=== PATIENT | male | born 1995 | race African-American/Black ===

== ENCOUNTER 2019-03-06 12:27 | Emergency (ER) | payer OTHER ==
[2019-03-06] MEDS ORDERED: methylPREDNISolone Sodium Succinate 125 MG/2 ML SDV IM ONE (12:53)
--- NOTE | 2019-03-06 12:56 | EDM.PDOC ---
ED HPI GENERAL MEDICAL PROBLEM - General Chief Complaint: Respiratory Problem Stated Complaint: ASTHMA ATTACK Time Seen by Provider: 03/06/19 12:53 Source of Information: Reports: Patient History Limitations: Reports: No Limitations - History of Present Illness INITIAL COMMENTS - FREE TEXT/NARRATIVE: HISTORY AND PHYSICAL: History of present illness: Patient is a 23-year-old male presents to the ED with complaint of asthma attack. Patient reports history of asthma, he states he has not used inhalers in 2 hours but recently moved to [place] and in the last month has been having cough and shortness of breath. He states this morning he could not catch his breath so he came to the ED. He states he felt feverish last night and having generalized body aches today. Review of systems: As per history of present illness and below otherwise all systems reviewed and negative. Past medical history: As per history of present illness and as reviewed below otherwise noncontributory. Surgical history: As per history of present illness and as reviewed below otherwise noncontributory. Social history: No reported history of drug or alcohol abuse. Family history: As per history of present illness and as reviewed below otherwise noncontributory. Physical exam: General: Patient sitting comfortably in no acute distress and nontoxic appearing HEENT: Atraumatic, normocephalic, pupils reactive, negative for conjunctival pallor or scleral icterus, mucous membranes moist, throat clear, neck supple, nontender, trachea midline. No meningeal signs. Lungs: Wheezing throughout all lung stewart, chest nontender. Heart: S1S2, regular, negative for clicks, rubs, or overt murmur. Abdomen: Soft, nondistended, nontender. Negative for masses or hepatosplenomegaly. Negative for costovertebral tenderness. No rigidity, rebound , guarding. Pelvis: Stable nontender. Genitourinary: Deferred. Rectal: Deferred. Extremities: Atraumatic, negative for cords or calf pain. Neurovascular unremarkable. Neuro: Awake, alert, oriented. Cranial nerves II through XII unremarkable. Cerebellum unremarkable. Motor and sensory unremarkable throughout. Exam nonfocal. Notes: Diagnostics: Influenza Therapeutics: DuoNeb Solumedrol 125mg IM Prescriptions: Ventolin inhaler Medrol dosepak Impression: Acute asthma exacerbation Definitive disposition and diagnosis as appropriate pending reevaluation and review of above. - Related Data Allergies Allergy/AdvReac Type Severity Reaction Status Date / Time Penicillins Allergy Rash Verified 03/06/19 12:37 Sulfa (Sulfonamide Allergy Rash Verified 03/06/19 12:37 Antibiotics) Home Meds: Home Meds Albuterol Sulfate [Proair Hfa] 8.5 gm INH ASDIRECTED 03/06/19 [History] Albuterol [Ventolin HFA] 1 puff INH Q4H #1 inhaler 03/06/19 [Rx] methylPREDNISolone [Medrol] 4 mg PO ASDIRECTED #1 tab.ds.pk 03/06/19 [Rx] Past Medical History Respiratory History: Reports: Asthma Psychiatric History: Reports: Anxiety - Infectious Disease History Infectious Disease History: Reports: None Social & Family History - Family History Family Medical History: Noncontributory - Tobacco Use Smoking Status *Q: Never Smoker Second Hand Smoke Exposure: No - Caffeine Use Caffeine Use: Reports: Tea - Recreational Drug Use Recreational Drug Use: Yes Drug Use in Last 12 Months: Yes Recreational Drug Type: Reports: Marijuana/Hashish ED ROS GENERAL - Review of Systems Review Of Systems: Comprehensive ROS is negative, except as noted in HPI. ED EXAM, GENERAL - Physical Exam Exam: See Below (see dictation) Course - Vital Signs Last Recorded V/S: Last Vital Signs Temp 99.0 F 03/06/19 12:38 Pulse 76 03/06/19 12:59 Resp 20 03/06/19 12:59 BP 169/77 H 03/06/19 12:38 Pulse Ox 93 L 03/06/19 12:59 - Orders/Labs/Meds Meds: Medications Discontinued Medications Generic Name Dose Route Start Last Admin Trade Name Marcelo PRN Reason Stop Dose Admin Methylprednisolone Sodium Succinate 125 mg 03/06/19 12:53 03/06/19 13:07 Solu-Medrol IM 03/06/19 12:54 125 mg ONETIME ONE Administration Departure - Departure Time of Disposition: 13:37 Disposition: Home, Self-Care 01 Condition: Good Clinical Impression: Asthma exacerbation - Discharge Information Prescriptions: Albuterol [Ventolin HFA] 1 puff INH Q4H #1 inhaler methylPREDNISolone [Medrol] 4 mg PO ASDIRECTED #1 tab.ds.pk Instructions: Shortness of Breath, Adult, [id number] Referrals: PCP,Unknown [Primary Care Provider] - Forms: ED Department Discharge Additional Instructions: The following information is given to patients seen in the emergency department who are being discharged to home. This information is to outline your options for follow-up care. We provide all patients seen in our emergency department with a follow-up referral. The need for follow-up, as well as the timing and circumstances, are variable depending upon the specifics of your emergency department visit. If you don't have a primary care physician on staff, we will provide you with a referral. We always advise you to contact your personal physician following an emergency department visit to inform them of the circumstance of the visit and for follow-up with them and/or the need for any referrals to a consulting specialist. The emergency department will also refer you to a specialist when appropriate. This referral assures that you have the opportunity for follow-up care with a specialist. All of these measure are taken in an effort to provide you with optimal care, which includes your follow-up. Under all circumstances we always encourage you to contact your private physician who remains a resource for coordinating your care. When calling for follow-up care, please make the office aware that this follow-up is from your recent emergency room visit. If for any reason you are refused follow-up, please contact the [facility] Emergency Department at and asked to speak to the emergency department charge nurse. [facility] Primary Care [address] [place] [address] [place] [address] Use nebulizer and medrol dosepak as instructed Follow up with primary care provider Return to ED as needed as discussed Sepsis Event Note - Evaluation Sepsis Screening Result: No Definite Risk - Focused Exam Vital Signs: Vital Signs Temp Pulse Resp BP Pulse Ox 03/06/19 12:59 76 20 93 L 03/06/19 12:38 99.0 F 84 22 H 169/77 H 98 Date Exam was Performed: 03/06/19 Time Exam was Performed: 13:51
== END 2019-03-06 13:50 | disposition home or self-care (01) ==
LOC: MW.ED 12:27
DX: J45.901 Unspecified asthma with (acute) exacerbation (principal); Z88.0 Allergy status to penicillin; Z88.2 Allergy status to sulfonamides
CPT/HCPCS: 87804; 96372; 99284; J2930; 99283

== ENCOUNTER 2019-03-26 23:19 | Emergency (ER) | payer OTHER ==
--- NOTE | 2019-03-26 23:40 | EDM.PDOC ---
ED HPI GENERAL MEDICAL PROBLEM - General Chief Complaint: Medication Administration Stated Complaint: MEDICATION REFILL Time Seen by Provider: 03/26/19 23:22 Source of Information: Reports: Patient History Limitations: Reports: No Limitations - History of Present Illness INITIAL COMMENTS - FREE TEXT/NARRATIVE: HISTORY OF PRESENT ILLNESS: Patient is a 23 old male with history of asthma who presents the ER requesting refill of her his albuterol inhaler. States he feels asthma attack coming on and only needs a refill. Patient refusing any treatment here in the ED. Denies any fevers chills or chest pain. States he has very mild shortness of breath typical of his usual mild asthma exacerbation. No abdominal pain, rash or neck stiffness. Has otherwise been in normal state of health. REVIEW OF SYSTEMS: Other than the symptoms associated with the present events, the following is reported with regard to recent health: General: (-) fever. HENT: (-) congestion. Respiratory: (+) mild dyspnea. Cardiovascular: (-) chest pain. GI: (-) abdominal pain. : (-) urinary complaints. Musculoskeletal: (-) other aches or pains. Endocrine: (-) generalized weakness. Neurological: (-) localized weakness. Skin: (-) rash PAST MEDICAL HISTORY: reviewed as per nursing notes SOCIAL HISTORY: reviewed as per nursing notes, MEDICATIONS: Per nurse's note ALLERGIES: Per nurse's note, reviewed by me PHYSICAL EXAMINATION: GENERALIZED APPEARANCE: well developed, well nourished in no distress VITAL SIGNS: Per nurse's note, reviewed by me SKIN: Warm, dry; (-) cyanosis; (-) rash. HEAD: (-) scalp swelling, (-) tenderness. EYES: (-) conjunctival pallor, (-) scleral icterus. ENMT: (-) stridor; mucous membranes moist. NECK: (-) tenderness, (-) stiffness, CHEST AND RESPIRATORY: (-) rales, (-) rhonchi, (-) wheezes; breath sounds equal bilaterally. HEART AND CARDIOVASCULAR: (-) irregularity; (-) murmur, (-) gallop. ABDOMEN AND GI: Soft; (-) tenderness, (-) guarding, (-) rebound, (-) palpable masses, EXTREMITIES: (-) deformity, (-) edema. NEURO AND PSYCH: Alert. Cranial nerves grossly intact; strength symmetric. gait steady EMERGENCY DEPARTMENT COURSE AND TREATMENT: Patient's condition remained stable during Emergency Department evaluation. On exam there was a normal respiratory pattern and lung stewart were clear on auscultation. The patient appeared to be in no distress, appeared well-hydrated and was ambulating in the ED without difficulty. Discharge precautions were given with instructions to return if difficulty breathing, not tolerating oral food or fluids, any respiratory distress, or new symptoms. I encouraged follow-up with the primary care physician or return here for repeat exam in 24-48 hours PLAN AND FOLLOW-UP: Patient received written and verbal instructions regarding this condition. Return to ED immediately with any new or worsening symptoms. Follow up to be arranged by patient with pcp in 1-2 days for further evaluation. Given discharge precautions. Patient expressed verbal understanding. - Related Data Allergies Allergy/AdvReac Type Severity Reaction Status Date / Time Penicillins Allergy Rash Verified 03/26/19 23:32 Sulfa (Sulfonamide Allergy Rash Verified 03/26/19 23:32 Antibiotics) Home Meds: Home Meds Albuterol Sulfate [Proair Hfa] 8.5 gm INH ASDIRECTED 03/06/19 [History] Past Medical History HEENT History: Reports: None Cardiovascular History: Reports: None Respiratory History: Reports: Asthma Gastrointestinal History: Reports: None Genitourinary History: Reports: None Musculoskeletal History: Reports: None Neurological History: Reports: None Psychiatric History: Reports: Anxiety, Suicide Attempt, Suicidal Ideation Endocrine/Metabolic History: Reports: None Hematologic History: Reports: None Immunologic History: Reports: None Oncologic (Cancer) History: Reports: None Dermatologic History: Reports: None - Infectious Disease History Infectious Disease History: Reports: None - Past Surgical History Head Surgeries/Procedures: Reports: None Social & Family History - Family History Family Medical History: Noncontributory - Tobacco Use Smoking Status *Q: Former Smoker Used Tobacco, but Quit: Yes Month/Year Tobacco Last Used: 2019 - Caffeine Use Caffeine Use: Reports: Tea - Recreational Drug Use Recreational Drug Use: Yes Drug Use in Last 12 Months: Yes Recreational Drug Type: Reports: Marijuana/Hashish Recreational Drug Use Frequency: Not Used In Over 1 Month ED ROS GENERAL - Review of Systems Review Of Systems: See Below (see dictation) ED EXAM, GENERAL - Physical Exam Exam: See Below (see dictation) Course - Vital Signs Last Recorded V/S: Last Vital Signs Temp 97.4 F 03/26/19 23:28 Pulse 72 03/26/19 23:28 Resp 18 03/26/19 23:28 BP 117/75 03/26/19 23:28 Pulse Ox 96 03/26/19 23:28 Departure - Departure Time of Disposition: 23:39 Disposition: Home, Self-Care 01 Condition: Good Clinical Impression: Asthma - Discharge Information *PRESCRIPTION DRUG MONITORING PROGRAM REVIEWED*: Not Applicable *COPY OF PRESCRIPTION DRUG MONITORING REPORT IN PATIENT [place]: Not Applicable Instructions: Asthma, Adult Referrals: Rohini Alonzo NP [Primary Care Provider] - 2 Days Forms: ED Department Discharge Additional Instructions: The following information is given to patients seen in the emergency department who are being discharged to home. This information is to outline your options for follow-up care. We provide all patients seen in our emergency department with a follow-up referral. The need for follow-up, as well as the timing and circumstances, are variable depending upon the specifics of your emergency department visit. If you don't have a primary care physician on staff, we will provide you with a referral. We always advise you to contact your personal physician following an emergency department visit to inform them of the circumstance of the visit and for follow-up with them and/or the need for any referrals to a consulting specialist. The emergency department will also refer you to a specialist when appropriate. This referral assures that you have the opportunity for follow-up care with a specialist. All of these measure are taken in an effort to provide you with optimal care, which includes your follow-up. Under all circumstances we always encourage you to contact your private physician who remains a resource for coordinating your care. When calling for follow-up care, please make the office aware that this follow-up is from your recent emergency room visit. If for any reason you are refused follow-up, please contact the [facility] Emergency Department at and asked to speak to the emergency department charge nurse. Sepsis Event Note - Evaluation Sepsis Screening Result: No Definite Risk - Focused Exam Vital Signs: Vital Signs Temp Pulse Resp BP Pulse Ox 03/26/19 23:28 97.4 F 72 18 117/75 96 Date Exam was Performed: 03/26/19 Time Exam was Performed: 23:41
[2019-03-27] MEDS ORDERED: Albuterol 8 GM Inhaler INH ONE ×2 (00:13)
== END 2019-03-26 23:49 | disposition home or self-care (01) ==
LOC: MW.ED 23:19
DX: J45.909 Unspecified asthma, uncomplicated (principal); Z88.0 Allergy status to penicillin; Z88.2 Allergy status to sulfonamides; Z87.891 Personal history of nicotine dependence
CPT/HCPCS: 99282; A9270

== ENCOUNTER 2019-05-12 13:40 | Emergency (ER) | payer OTHER ==
--- NOTE | 2019-05-12 14:07 | EDM.PDOC ---
ED HPI GENERAL MEDICAL PROBLEM - General Chief Complaint: Fever Stated Complaint: MUCOUS,COUGHING Time Seen by Provider: 05/12/19 14:06 Source of Information: Reports: Patient History Limitations: Reports: No Limitations - History of Present Illness INITIAL COMMENTS - FREE TEXT/NARRATIVE: HISTORY AND PHYSICAL: History of present illness: Patient is a 24-year-old male with history of asthma presents to the ED with complaint of fever and cough since yesterday. He states he has had some shortness of breath and has been using his nebulizer which does help. He reports sore throat, headache, and body aches. He denies chest pain, nausea, vomiting, diarrhea, difficulty breathing or swallowing. He is taking OTC cold medications for his symptoms with little relief. Review of systems: As per history of present illness and below otherwise all systems reviewed and negative. Past medical history: As per history of present illness and as reviewed below otherwise noncontributory. Surgical history: As per history of present illness and as reviewed below otherwise noncontributory. Social history: No reported history of drug or alcohol abuse. Family history: As per history of present illness and as reviewed below otherwise noncontributory. Physical exam: General: Patient sitting comfortably in no acute distress and nontoxic appearing HEENT: TMs are clear bilaterally. Atraumatic, normocephalic, pupils reactive, negative for conjunctival pallor or scleral icterus, mucous membranes moist, throat clear, neck supple, nontender, trachea midline. No meningeal signs. Lungs: Mild apical wheezing, chest nontender. Heart: S1S2, regular, negative for clicks, rubs, or overt murmur. Abdomen: Soft, nondistended, nontender. Negative for masses or hepatosplenomegaly. Negative for costovertebral tenderness. No rigidity, rebound , guarding. Pelvis: Stable nontender. Genitourinary: Deferred. Rectal: Deferred. Extremities: Atraumatic, negative for cords or calf pain. Neurovascular unremarkable. Neuro: Awake, alert, oriented. Cranial nerves II through XII unremarkable. Cerebellum unremarkable. Motor and sensory unremarkable throughout. Exam nonfocal. Notes: Patient slightly tachycardic on arrival, he did do a nebulizer treatment just prior to arrival which can cause an elevation in the HR. During examination , heart rate normalized to under 100 without any intervention. Diagnostics: Influenza Therapeutics: none Prescriptions: none Impression: Viral URI Plan: Alternate Tylenol and ibuprofen as needed for fever Follow-up with primary care provider Return To ED as needed discussed Definitive disposition and diagnosis as appropriate pending reevaluation and review of above. Sore Throat Pain Score (Numeric/FACES): 5 - Related Data Allergies Allergy/AdvReac Type Severity Reaction Status Date / Time Penicillins Allergy Rash Verified 05/12/19 14:03 Sulfa (Sulfonamide Allergy Rash Verified 05/12/19 14:03 Antibiotics) Home Meds: Home Meds Albuterol Sulfate [Proair Hfa] 8.5 gm INH ASDIRECTED 03/06/19 [History] Past Medical History HEENT History: Reports: None Cardiovascular History: Reports: None Respiratory History: Reports: Asthma Gastrointestinal History: Reports: None Genitourinary History: Reports: None Musculoskeletal History: Reports: None Neurological History: Reports: None Psychiatric History: Reports: Anxiety, Suicide Attempt, Suicidal Ideation Endocrine/Metabolic History: Reports: None Hematologic History: Reports: None Immunologic History: Reports: None Oncologic (Cancer) History: Reports: None Dermatologic History: Reports: None - Infectious Disease History Infectious Disease History: Reports: None - Past Surgical History Head Surgeries/Procedures: Reports: None Social & Family History - Family History Family Medical History: Noncontributory - Caffeine Use Caffeine Use: Reports: Tea ED ROS ENT - Review of Systems Review Of Systems: Comprehensive ROS is negative, except as noted in HPI. ED EXAM, ENT - Physical Exam Exam: See Below (see dictation) Course - Vital Signs Last Recorded V/S: Last Vital Signs Temp 100.4 F 05/12/19 13:59 Pulse 131 H 05/12/19 13:59 Resp 20 05/12/19 13:59 BP 130/87 05/12/19 13:59 Pulse Ox 95 05/12/19 13:59 Departure - Departure Time of Disposition: 14:43 Disposition: Home, Self-Care 01 Condition: Good Clinical Impression: Viral URI - Discharge Information Referrals: PCP,None [Primary Care Provider] - Forms: ED Department Discharge Care Plan Goals: The following information is given to patients seen in the emergency department who are being discharged to home. This information is to outline your options for follow-up care. We provide all patients seen in our emergency department with a follow-up referral. The need for follow-up, as well as the timing and circumstances, are variable depending upon the specifics of your emergency department visit. If you don't have a primary care physician on staff, we will provide you with a referral. We always advise you to contact your personal physician following an emergency department visit to inform them of the circumstance of the visit and for follow-up with them and/or the need for any referrals to a consulting specialist. The emergency department will also refer you to a specialist when appropriate. This referral assures that you have the opportunity for follow-up care with a specialist. All of these measure are taken in an effort to provide you with optimal care, which includes your follow-up. Under all circumstances we always encourage you to contact your private physician who remains a resource for coordinating your care. When calling for follow-up care, please make the office aware that this follow-up is from your recent emergency room visit. If for any reason you are refused follow-up, please contact the [facility] Emergency Department at and asked to speak to the emergency department charge nurse. [facility] Primary Care [address] [place] [address] [id number] [address] [address] Alternate Tylenol and ibuprofen as needed for fever Follow-up with primary care provider Return To ED as needed discussed Sepsis Event Note - Evaluation Sepsis Screening Result: No Definite Risk - Focused Exam Vital Signs: Vital Signs Temp Pulse Resp BP Pulse Ox 05/12/19 13:59 100.4 F 131 H 20 130/87 95 Date Exam was Performed: 05/12/19 Time Exam was Performed: 14:43
== END 2019-05-12 15:13 | disposition home or self-care (01) ==
LOC: MW.ED 13:40
DX: J06.9 Acute upper respiratory infection, unspecified (principal); J45.909 Unspecified asthma, uncomplicated; Z88.0 Allergy status to penicillin; Z88.2 Allergy status to sulfonamides
CPT/HCPCS: 87804; 99282; 99284

== ENCOUNTER 2019-05-29 06:50 | Emergency (ER) | payer OTHER ==
[2019-05-29] MEDS ORDERED: Ibuprofen 600 MG Tab PO ONE (07:19)
[2019-05-29] MEDS ORDERED: Lidocaine 1% with EPINEPHrine 1:100,000 10 ML MDV INJECT ONE (07:19)
[2019-05-29] MEDS ORDERED: Lidocaine 1% with EPINEPHrine 1:100,000 20 ML MDV ONE (07:28)
[2019-05-29] MEDS ORDERED: Lidocaine 1% with EPINEPHrine 1:100,000 20 ML MDV INJECT ONE (07:28)
--- NOTE | 2019-05-29 07:53 | EDM.PDOC ---
ED [facility] GENERAL MEDICAL PROBLEM - General Chief Complaint: Respiratory Problem Stated Complaint: POSSIBLE SPIDER BITE Time Seen by Provider: 05/29/19 07:30 Source of Information: Reports: Patient History Limitations: Reports: No Limitations - History of Present Illness INITIAL COMMENTS - FREE TEXT/NARRATIVE: Patient is a 24-year-old male no significant past medical history presenting with a chief complaint of infection to the right lower extremity. Patient states he noticed the infection yesterday around 5 PM. Patient states it started as a small pimple and he attempted to drain the pimple with a sewing needle. He did not get any pus out and noticed that overnight it got more swollen and painful. Location is posterior right thigh. Patient had surrounding redness. Patient denies any other injuries. Patient denies fevers , chills, nausea, vomiting. Pmhx: None Pshx: None Family Hx: noncontributory Smoking history? no Etoh use? none Drug use? none In addition to that documented in the HPI above, the additional ROS was obtained : Constitutional: Denies fevers or chills Eyes: Denies vision changes ENMT: Denies sore throat CV: Denies chest pain Resp: Denies SOB GI: Denies vomiting or diarrhea : Denies painful urination MSK: Denies recent trauma Skin: Per HPI Neuro: Denies new numbness or tingling or weakness Endocrine: Denies unexpected weight loss Heme: Denies bleeding disorders I have reviewed the triage vital signs Const: Well nourished, well developed, appears stated age Eyes: PERRL, no conjunctival injection HENT: NCAT, Neck supple without meningismus CV: RRR, Warm, well-perfused extremities RESP: CTAB, Unlabored respiratory effort GI: soft, non-tender, non-distended, no masses MSK: No gross deformities appreciated Skin: Erythema with central small abscess located on the posterior medial right thigh. No extension into the groin or scrotum. No crepitus noted. Neuro: Alert, stencil sprayer II-XII grossly intact. Sensation and motor function of extremities grossly intact. Psych: Appropriate mood and affect Assessment and plan: Patient is a 24 of male presenting with a abscess and surrounding cellulitis. Patient had I&D performed in the emergency department with drainage of some pus. Patient had sterile dressing placed and initiated on antibiotics. Patient given return precautions all questions dressed and answered. Patient agrees with plan. PROCEDURE NOTE: INCISION AND DRAINAGE OF ABSCESS Indication: Abscess Customer Business Manager: Dr. Schmidt Indications, risks, and benefits explained to patient and verbal informed consent obtained. Correct patient and procedure type was verified. 1) The patient was anesthetized using 4 cc lidocaine 1% w/epinephrine 2) Abscess Location: Right posterior thigh 3) Abscess Size: 2 cm 4) Procedure description: 11 blade scalpel was used to make incision. Small amount pus was drained 5) Culture specimen(s) obtained and sent for testing? No A clean dressing was applied. The patient tolerated the procedure with some discomfort. right leg Pain Score (Numeric/FACES): 8 - Related Data Allergies Allergy/AdvReac Type Severity Reaction Status Date / Time Penicillins Allergy Rash Verified 05/29/19 06:59 Sulfa (Sulfonamide Allergy Rash Verified 05/29/19 06:59 Antibiotics) Home Meds: Home Meds Albuterol Sulfate [Proair Hfa] 8.5 gm INH ASDIRECTED 03/06/19 [History] Ciprofloxacin HCl [Cipro] 500 mg PO BID #14 tablet 05/29/19 [Rx] Clindamycin HCl 300 mg PO Q6HR #40 capsule 05/29/19 [Rx] Past Medical History HEENT History: Reports: None Cardiovascular History: Reports: None Respiratory History: Reports: Asthma Gastrointestinal History: Reports: None Genitourinary History: Reports: None Musculoskeletal History: Reports: None Neurological History: Reports: None Psychiatric History: Reports: Anxiety, Suicide Attempt, Suicidal Ideation Endocrine/Metabolic History: Reports: None Hematologic History: Reports: None Immunologic History: Reports: None Oncologic (Cancer) History: Reports: None Dermatologic History: Reports: None - Infectious Disease History Infectious Disease History: Reports: None - Past Surgical History Head Surgeries/Procedures: Reports: None Social & Family History - Family History Family Medical History: Noncontributory - Tobacco Use Smoking Status *Q: Current Some Day Smoker Years of Tobacco use: 5 Packs/Tins Daily: 0.2 - Caffeine Use Caffeine Use: Reports: Tea - Recreational Drug Use Recreational Drug Use: Yes Recreational Drug Type: Reports: Marijuana/Hashish ED ROS GENERAL - Review of Systems Review Of Systems: See Below ED EXAM, GENERAL - Physical Exam Exam: See Below Course - Vital Signs Last Recorded V/S: Last Vital Signs Temp 36.7 C 05/29/19 06:59 Pulse 90 03/25/20 06:59 Resp 18 05/29/19 06:59 BP 164/60 H 05/29/19 06:59 Pulse Ox 100 05/29/19 06:59 - Orders/Labs/Meds Meds: Medications Discontinued Medications Generic Name Dose Route Start Last Admin Trade Name Marcelo PRN Reason Stop Dose Admin Ibuprofen 600 mg 05/29/19 07:19 05/29/19 07:44 Motrin PO 05/29/19 07:20 600 mg ONETIME ONE Administration Lidocaine/Epinephrine 20 ml 05/29/19 07:28 05/29/19 07:44 Xylocaine 1% With Epinephrine 1:100,000 INJECT 05/29/19 07:29 20 ml ONETIME ONE Administration Lidocaine/Epinephrine Confirm 05/29/19 07:28 05/29/19 07:44 Xylocaine 1% With Epinephrine 1:100,000 Administered 05/29/19 07:29 Not Given Dose 20 ml .ROUTE .STK-MED ONE Departure - Departure Time of Disposition: 07:53 Disposition: Home, Self-Care 01 Clinical Impression: Cellulitis and abscess of right lower extremity - Discharge Information Prescriptions: Clindamycin HCl 300 mg PO Q6HR #40 capsule Ciprofloxacin HCl [Cipro] 500 mg PO BID #14 tablet Instructions: Cellulitis, Adult, [id number] Referrals: PCP,None [Primary Care Provider] - Forms: ED Department Discharge Sepsis Event Note - Evaluation Sepsis Screening Result: No Definite Risk - Focused Exam Vital Signs: Vital Signs Temp Pulse Resp BP Pulse Ox 05/29/19 06:59 36.7 C 90 18 164/60 H 100 Date Exam was Performed: 05/29/19 Time Exam was Performed: 07:54
[2019-05-29] MEDS ORDERED: Ciprofloxacin 500 MG Tab PO ONE (08:20)
[2019-05-29] MEDS ORDERED: Clindamycin HCl 150 MG Cap PO ONE (08:20)
== END 2019-05-29 08:32 | disposition home or self-care (01) ==
LOC: MW.ED 06:50
DX: L03.115 Cellulitis of right lower limb (principal); L02.415 Cutaneous abscess of right lower limb; F17.210 Nicotine dependence, cigarettes, uncomplicated; Z88.0 Allergy status to penicillin; Z88.2 Allergy status to sulfonamides
CPT/HCPCS: 10060; 99283; A9270

== ENCOUNTER 2019-12-08 16:47 | Emergency (ER) | payer OTHER ==
[2019-12-08] MEDS ORDERED: Albuterol/Ipratropium 3.0-0.5 MG/3 ML Neb Soln NEB ONE (16:50)
[2019-12-08] MEDS ORDERED: predniSONE 20 MG Tab PO ONE (16:50)
--- NOTE | 2019-12-08 16:53 | EDM.PDOC ---
ED [facility] GENERAL MEDICAL PROBLEM - General Chief Complaint: Respiratory Problem Stated Complaint: ASTHMA Time Seen by Provider: 12/08/19 16:51 Source of Information: Reports: Patient History Limitations: Reports: No Limitations - History of Present Illness INITIAL COMMENTS - FREE TEXT/NARRATIVE: HISTORY AND PHYSICAL: History of present illness: Patient is a 24-year-old male who presents to the emergency room with complaints of shortness of breath and wheezing. He has a longstanding history of asthma and does use an inhaler on a routine basis. He states he ran out of his inhaler and has increased shortness of breath. Patient denies any fever, chills, headache, change in vision, syncope or near syncope. Denies any chest pain, back pain, or concerns of COVID-19. Denies any GI or symptoms. Patient has been eating and drinking appropriately. Review of systems: As per history of present illness and below otherwise all systems reviewed and negative. Past medical history: As per history of present illness and as reviewed below otherwise noncontributory. Surgical history: As per history of present illness and as reviewed below otherwise noncontributory. Social history: See social history for further information Family history: As per history of present illness and as reviewed below otherwise noncontributory. Physical exam: General: Well developed and well nourished 24-year-old male. Alert and orientated x 3. Nontoxic in appearance and in no acute distress. Vital signs are stable and have been reviewed by me. Nursing notes were reviewed. HEENT: Atraumatic, normocephalic, pupils equal and reactive bilaterally, negative for conjunctival pallor or scleral icterus, mucous membranes moist, TMs normal bilaterally, throat clear, neck supple, nontender, trachea midline. No drooling or trismus noted. No meningeal signs. No hot potato voice noted. Lungs: Expiratory wheezing throughout to auscultation, breath sounds equal bilaterally, chest nontender. Normal work of breathing, no accessory muscles used. Heart: S1S2, regular rate and rhythm without overt murmur Abdomen: Soft, nondistended, nontender. Skin: Intact, warm, dry. No lesions or rashes noted. Hematologic: No petechiae or purpra. Mucosa appropriate color and normal nail bed color and refill. Extremities: Atraumatic, moves all extremities per self without difficulty or deficits, negative for cords or calf pain. Neurovascular unremarkable. Neuro: Awake, alert, oriented. Cranial nerves II through XII unremarkable. Cerebellum unremarkable. Motor and sensory unremarkable throughout. Exam nonfocal. Psychiatric: Mood and affect are appropriate. Normal thought process. Answering questions appropriately. Notes: Lung sounds improved after the nebulizer treatment. X-ray shows no acute findings. I have spoken with the patient/caregiver and discussed today's findings, in addition to providing specific details for plan of care. Reassessment at the time of disposition demonstrates that the patient is in no acute distress. The patient has remained stable throughout the entire ED visit and is without objective evidence for acute process requiring urgent intervention or hospitalization. The patient is stable for discharge, counseling was provided and we discussed in great detail signs and symptoms that would prompt them to return to the Emergency Department. Medication, follow up and supportive care measures were reviewed and discussed. Voices understanding and is agreeable to plan of care. Denies any further questions or concerns at this time. Diagnostics: CXR Therapeutics: Prednisone, Duo Neb Prescription: Albuterol Inhaler, Prednisone Impression: Asthma exacerbation Plan: 1. Take your medications as prescribed. 2. We encourage you to follow up with your primary care provider and/or recommended specialist in the next few days for re-evaluation and further care/management. 3. If your symptoms should worsen, new symptoms develop or any of the signs and symptoms we discussed should arise please return to the emergency room or call 911 (if needed). Definitive disposition and diagnosis as appropriate pending reevaluation and review of above. - Related Data Allergies Allergy/AdvReac Type Severity Reaction Status Date / Time Penicillins Allergy Rash Verified 12/08/19 17:00 Sulfa (Sulfonamide Allergy Rash Verified 12/08/19 17:00 Antibiotics) Home Meds: Home Meds Albuterol Sulfate [Proair Hfa] 2 puff INH Q4HR PRN #1 inhaler 12/08/19 [Rx] predniSONE [Prednisone] 40 mg PO DAILY 4 Days #8 tablet 12/08/19 [Rx] Past Medical History HEENT History: Reports: None Cardiovascular History: Reports: None Respiratory History: Reports: Asthma Gastrointestinal History: Reports: None Genitourinary History: Reports: None Musculoskeletal History: Reports: None Neurological History: Reports: None Psychiatric History: Reports: Anxiety, Suicide Attempt, Suicidal Ideation Endocrine/Metabolic History: Reports: None Hematologic History: Reports: None Immunologic History: Reports: None Oncologic (Cancer) History: Reports: None Dermatologic History: Reports: None - Infectious Disease History Infectious Disease History: Reports: None - Past Surgical History Head Surgeries/Procedures: Reports: None Social & Family History - Family History Family Medical History: Noncontributory - Caffeine Use Caffeine Use: Reports: Tea ED ROS GENERAL - Review of Systems Review Of Systems: Comprehensive ROS is negative, except as noted in HPI. ED EXAM, GENERAL - Physical Exam Exam: See Below (See dictation) Course - Vital Signs Last Recorded V/S: Last Vital Signs Temp 94.4 F L 12/08/19 16:58 Pulse 109 H 12/08/19 16:58 Resp 24 H 12/08/19 16:58 BP 134/83 12/08/19 16:58 Pulse Ox 93 L 12/08/19 16:58 - Orders/Labs/Meds Orders: Active Orders 24 hr Category Date Time Status RT Aerosol Therapy [RC] ASDIRECTED Care 12/08/19 16:50 Active RT Post Treatment Assessment [RC] Click to Edit Care 12/08/19 17:28 Ordered RT Post Treatment Assessment [RC] Click to Edit Care 12/08/19 17:44 Active RT Pre-Treatment Assessment [RC] Click to Edit Care 12/08/19 17:28 Ordered RT Pre-Treatment Assessment [RC] Click to Edit Care 12/08/19 17:44 Active Meds: Medications Discontinued Medications Generic Name Dose Route Start Last Admin Trade Name Marcelo PRN Reason Stop Dose Admin Albuterol 1 gm 12/08/19 17:28 Ventolin Hfa INH 12/08/19 17:29 ONETIME ONE Albuterol 18 gm 12/08/19 17:44 Ventolin Hfa INH 12/08/19 17:45 ONETIME ONE Albuterol Confirm 12/08/19 17:55 Ventolin Hfa Administered 12/08/19 17:56 Dose 18 gm .ROUTE .STK-MED ONE Albuterol/Ipratropium 6 ml 12/08/19 16:50 12/08/19 17:00 Duoneb 3.0-0.5 Mg/3 Ml NEB 12/08/19 16:51 6 ml ONETIME ONE Administration Prednisone 60 mg 12/08/19 16:50 12/08/19 17:06 Prednisone PO 12/08/19 16:51 60 mg ONETIME ONE Administration Departure - Departure Time of Disposition: 17:31 Disposition: Home, Self-Care 01 Clinical Impression: Asthma exacerbation - Discharge Information Prescriptions: predniSONE [Prednisone] 40 mg PO DAILY 4 Days #8 tablet Albuterol Sulfate [Proair Hfa] 2 puff INH Q4HR PRN #1 inhaler PRN Reason: Dyspnea Instructions: Asthma, Adult, [id number] Referrals: Maria R JOY [Ordering Only Provider] - Forms: ED Department Discharge Additional Instructions: The following information is given to patients seen in the emergency department who are being discharged to home. This information is to outline your options for follow-up care. We provide all patients seen in our emergency department with a follow-up referral. The need for follow-up, as well as the timing and circumstances, are variable depending upon the specifics of your emergency department visit. If you don't have a primary care physician on staff, we will provide you with a referral. We always advise you to contact your personal physician following an emergency department visit to inform them of the circumstance of the visit and for follow-up with them and/or the need for any referrals to a consulting specialist. The emergency department will also refer you to a specialist when appropriate. This referral assures that you have the opportunity for follow-up care with a specialist. All of these measure are taken in an effort to provide you with optimal care, which includes your follow-up. Under all circumstances we always encourage you to contact your private physician who remains a resource for coordinating your care. When calling for follow-up care, please make the office aware that this follow-up is from your recent emergency room visit. If for any reason you are refused follow-up, please contact the [facility] Emergency Department at and asked to speak to the emergency department charge nurse. [facility] [address] [place] [id number] [id number] Thank you for choosing the [facility] emergency department in [place] for your medical needs today. It was a pleasure caring for you. Today you were seen in the emergency department for asthma. 1. Take your medications as prescribed. 2. We encourage you to follow up with your primary care provider and/or recommended specialist in the next few days for re-evaluation and further care/management. 3. If your symptoms should worsen, new symptoms develop or any of the signs and symptoms we discussed should arise please return to the emergency room or call 911 (if needed). Sepsis Event Note (ED) - Focused Exam Vital Signs: Vital Signs Temp Pulse Resp BP Pulse Ox 12/08/19 16:58 94.4 F L 109 H 24 H 134/83 93 L - My Orders Last 24 Hours: My Active Orders 12/08/19 16:50 RT Aerosol Therapy [RC] ASDIRECTED 12/08/19 17:28 RT Post Treatment Assessment [RC] Click to Edit RT Pre-Treatment Assessment [RC] Click to Edit 12/08/19 17:44 RT Post Treatment Assessment [RC] Click to Edit RT Pre-Treatment Assessment [RC] Click to Edit - Assessment/Plan Last 24 Hours: My Active Orders 12/08/19 16:50 RT Aerosol Therapy [RC] ASDIRECTED 12/08/19 17:28 RT Post Treatment Assessment [RC] Click to Edit RT Pre-Treatment Assessment [RC] Click to Edit 12/08/19 17:44 RT Post Treatment Assessment [RC] Click to Edit RT Pre-Treatment Assessment [RC] Click to Edit
[2019-12-08] MEDS ORDERED: Albuterol 8 GM Inhaler INH ONE ×2 (17:28→17:44)
[2019-12-08] MEDS ORDERED: Albuterol HFA 18 Gm Inhaler ONE (17:55)
--- NOTE | 2019-12-08 18:12 | CR ---
INDICATION: Pain with shortness of breath. TECHNIQUE: Chest 1 view. COMPARISON: None FINDINGS: Cardiovascular and mediastinum: Heart size and vasculature are normal in caliber and appearance. Mediastinum is within normal limits. Lungs and pleural space: Lungs are clear. No sign of infiltrate or mass. No sign of pleural effusion. No pneumothorax. Bones and soft tissues: No significant findings. IMPRESSION: Unremarkable chest. Dictated by Kamari Wilson MD @ Dec 08 2019 6:10PM Signed by Dr. Kamari Wilson @ Dec 08 2019 6:10PM
== END 2019-12-08 18:24 | disposition home or self-care (01) ==
LOC: MW.ED 16:47
DX: J45.901 Unspecified asthma with (acute) exacerbation (principal); Z88.0 Allergy status to penicillin; Z88.2 Allergy status to sulfonamides
CPT/HCPCS: 71045; 94640; 99285; A9270; 99283; J3535-GY; J7620-GY

== ENCOUNTER 2019-12-15 16:54 | Emergency (ER) | payer OTHER ==
[2019-12-15] MEDS ORDERED: Alum Hydrox/Mag Hydrox/Simeth 15 ML, Lidocaine 2% 5 ML PO ONE ×2 (17:38)
[2019-12-15] MEDS ORDERED: Albuterol/Ipratropium 3.0-0.5 MG/3 ML Neb Soln NEB ONE (17:38)
[2019-12-15] MEDS ORDERED: Acetaminophen 500 MG Tab PO ONE (17:38)
--- NOTE | 2019-12-15 19:06 | EDM.PDOC ---
ED HPI GENERAL MEDICAL PROBLEM - General Chief Complaint: Asthma Stated Complaint: HARD TIME BREATHING, ASTHMA Time Seen by Provider: 12/15/19 17:05 Source of Information: Reports: Patient History Limitations: Reports: No Limitations - History of Present Illness INITIAL COMMENTS - FREE TEXT/NARRATIVE: 24/M w/PMH asthma presenting with abdominal pain, N/V, cough, wheezing. Reports multiple episodes of NB emesis since this AM. Emesis results in coughing at the end of the emesis episode. Has also noticed some wheezing throughout the day and feels mildly dyspneic. 09/12 epigastric pain, non-radiating, constant, nothing makes it better/worse. No sick contacts at home. Denies fever, chills, hematemesis, CP, SOB, rectal bleeding, abdominal distention. Past medical history: Reviewed, no additional pertinent history. Surgical history: Reviewed in system, no additional pertinent history. Social history: Reviewed in system, no additional pertinent history. Family history: Reviewed in system, no additional pertinent history. PHYSICAL EXAM Vital signs reviewed. Nursing notes reviewed. Constitutional: Awake, alert, non-distressed. Head: Normocephalic, atraumatic. Eyes: EOMI, conjunctiva normal, no discharge, no scleral icterus. Ears, Nose, Throat: External ears and nose normal, moist oral mucosa. Cardiovascular: 2+ radial pulse, capillary refill less than 2 seconds. Pulmonary: normal work of breathing, no accessory muscle use. Mild expiratory wheezing. Abdomen/GI: Soft, mild epigastric tenderness, nondistended, no guarding or rigidity, no masses. Musculoskeletal: No deformities. Integumentary: Appropriate color for ethnicity, warm, dry, no pallor or jaundice, no rash. Neurologic: Alert, answering questions appropriately, normal speech, no facial droop, moving all extremities well. Psychiatric: Appropriate mood and affect, normal thought process. Abdominal Pain Score (Numeric/FACES): 4 - Related Data Allergies Allergy/AdvReac Type Severity Reaction Status Date / Time Penicillins Allergy Rash Verified 12/15/19 17:09 Sulfa (Sulfonamide Allergy Rash Verified 12/15/19 17:09 Antibiotics) Home Meds: Home Meds Albuterol Sulfate [Proair Hfa] 2 puff INH Q4HR PRN #1 inhaler 12/08/19 [Rx] Past Medical History HEENT History: Reports: None Cardiovascular History: Reports: None Respiratory History: Reports: Asthma Gastrointestinal History: Reports: None Genitourinary History: Reports: None Musculoskeletal History: Reports: None Neurological History: Reports: None Psychiatric History: Reports: Anxiety, Suicide Attempt, Suicidal Ideation Endocrine/Metabolic History: Reports: None Hematologic History: Reports: None Immunologic History: Reports: None Oncologic (Cancer) History: Reports: None Dermatologic History: Reports: None - Infectious Disease History Infectious Disease History: Reports: None - Past Surgical History Head Surgeries/Procedures: Reports: None Social & Family History - Family History Family Medical History: Noncontributory - Tobacco Use Smoking Status *Q: Never Smoker - Caffeine Use Caffeine Use: Reports: Tea - Recreational Drug Use Recreational Drug Use: No ED ROS GENERAL - Review of Systems Review Of Systems: See Below ED EXAM, GENERAL - Physical Exam Exam: See Below Course - Vital Signs Text/Narrative:: Mildly wheezing on arrival. Speaking in full sentences, breathing easily. Normal SPO2 readings, normal respiratory rate. Given 2x DuoNebs, wheezing resolved. Breathing much better, back to normal. No fever or persistent cough. No CP. Low suspicion for pneumonia. No leg swelling, pleuritic chest pain, hemoptysis, hypoxia to suggest PE. Do not think a CXR needed at this point given rapid improvement after DuoNebs. No chest discomfort and dyspnea resolved with nebs so low suspicion for ACS/cardiac ischemia. Likely mild asthma exacerbation. Discussed with patient and would not recommend oral corticosteroids at this point given mild and rapidly resolved symptoms and novel coronavirus pandemic, patient is agreeable. Mild epigastric tenderness after multiple episodes of emesis. Not vomiting here at all. Did not require antiemetics. Complains of epigastric burning, this almost totally resolved after GI cocktail. Suspect mild gastritis. No hematemesis, coffee ground emesis, rectal bleeding, no abdominal guarding. Tachycardia improved on its own without fluids. Low suspicion for pancreatitis, PUD, hepatitis, biliary pathology, etc given minimally tender abdomen, no fever, no GIB, stable VS. Did discuss further work-up with pt including labs +/- imaging vs DC home with medication management for GERD/reflux - he prefers to DC home without additional work-up. Rx for Zofran sent. Has albuterol at home. Recommended OTC Prilosec and Maalox Max. Discussed return precautions and need for primary care follow-up. No quest ions at this point, discharged in good condition. Last Recorded V/S: Last Vital Signs Temp 37.0 C 12/15/19 19:28 Pulse 87 12/15/19 19:28 Resp 15 12/15/19 18:38 BP 134/76 12/15/19 19:28 Pulse Ox 95 12/15/19 19:28 - Orders/Labs/Meds Meds: Medications Discontinued Medications Generic Name Dose Route Start Last Admin Trade Name Ezequielq PRN Reason Stop Dose Admin Acetaminophen 1,000 mg 12/15/19 17:38 12/15/19 17:57 Tylenol Extra Strength PO 12/15/19 17:39 1,000 mg ONETIME ONE Administration Albuterol/Ipratropium 6 ml 12/15/19 17:38 12/15/19 17:46 Duoneb 3.0-0.5 Mg/3 Ml NEB 12/15/19 17:39 6 ml ONETIME ONE Administration Al Hydroxide/Mg Hydroxide 15 0 ml 12/15/19 17:38 12/15/19 17:55 ml/ Lidocaine HCl 5 ml PO 12/15/19 17:39 1 each ONETIME ONE Administration Departure - Departure Time of Disposition: 19:01 Disposition: Home, Self-Care 01 Condition: Good Clinical Impression: Mild asthma exacerbation, Epigastric abdominal pain Nausea and vomiting Qualifiers: Vomiting type: unspecified Vomiting Intractability: non-intractable Qualified Code(s): R11.2 - Nausea with vomiting, unspecified - Discharge Information *PRESCRIPTION DRUG MONITORING PROGRAM REVIEWED*: Not Applicable *COPY OF PRESCRIPTION DRUG MONITORING REPORT IN PATIENT [place]: Not Applicable Instructions: Asthma, Adult, Nausea and Vomiting, Adult Referrals: Marcos Crawley MD [Primary Care Provider] - Forms: ED Department Discharge Additional Instructions: You were seen in the emergency department for epigastric abdominal pain, nausea, vomiting, and wheezing. I am glad you are feeling better after your inhaled medications and the liquid medication. Your vital signs are reassuring and I think that we can plan to discharge you home with some medications to try and feel better at home. I am going to prescribe some Zofran which will help with nausea and vomiting. For your abdominal pain, I recommend [id number] Maalox max and Prilosec. I would recommend that you follow-up with a primary doctor in the next week for reevaluation. Warning signs to come back to the ER include worsening pain, vomiting blood or bloody bowel movements, fever, chest pain, shortness of breath, or any other new or concerning symptoms. Please return the emergency department immediately if your symptoms worsen or if you feel worse. Thank you for choosing the [facility] emergency department in [place] for your medical needs today. It was a pleasure caring for you. The following information is given to patients seen in the emergency department who are being discharged. This information is to outline your options for follow-up care. We provide all patients seen in our emergency department with a follow-up referral. The need for follow-up, as well as the timing and circumstances, are variable depending upon the specifics of your emergency department visit. If you don't have a primary care physician on staff, we will provide you with a referral. We always advise you to contact your personal physician following an emergency department visit to inform them of the circumstance of the visit and for follow-up with them and/or the need for any referrals to a consulting specialist. The emergency department will also refer you to a specialist when appropriate. This referral assures that you have the opportunity for follow-up care with a specialist. All of these measure are taken in an effort to provide you with optimal care, which includes your follow-up. Under all circumstances we always encourage you to contact your private physician who remains a resource for coordinating your care. When calling for follow-up care, please make the office aware that this follow-up is from your recent emergency room visit. If for any reason you are refused follow-up, please contact the [facility] Emergency Department at and asked to speak to the emergency department charge nurse. If you do not have a primary care physician that is caring for you, you can contact these clinics below to set up an appointment to establish care: Gildardo Bocanegra [facility] - Primary Care [address] [place] [id number] [facility] [address] [place] [id number] Sepsis Event Note (ED) - Evaluation Sepsis Screening Result: No Definite Risk - Focused Exam Vital Signs: Vital Signs Temp Pulse Resp BP Pulse Ox 12/15/19 19:28 37.0 C 87 134/76 95 12/15/19 18:38 36.9 C 89 15 130/77 96 12/15/19 17:09 37.0 C 111 H 17 139/77 96
== END 2019-12-15 19:39 | disposition home or self-care (01) ==
LOC: MW.ED 16:54
DX: J45.901 Unspecified asthma with (acute) exacerbation (principal); R10.13 Epigastric pain; R11.2 Nausea with vomiting, unspecified; Z88.0 Allergy status to penicillin; Z88.2 Allergy status to sulfonamides
CPT/HCPCS: 94640; 99284; A9270; 99283; J7620-GY

== ENCOUNTER 2020-12-09 03:40 | Emergency (ER) | payer OTHER ==
[2020-12-09] MEDS ORDERED: Albuterol 8 GM Inhaler INH ONE ×2 (04:05)
[2020-12-09] MEDS ORDERED: predniSONE 20 MG Tab ONE ×2 (04:05)
== END 2020-12-09 04:46 | disposition home or self-care (01) ==
LOC: MW.ED 03:40
DX: J45.909 Unspecified asthma, uncomplicated (principal)
CPT/HCPCS: 99284; A9270

== ENCOUNTER 2021-01-16 21:24 | Emergency (ER) | payer OTHER ==
[2021-01-16] MEDS ORDERED: Albuterol/Ipratropium 3.0-0.5 MG/3 ML Neb Soln NEB ONE (22:18)
[2021-01-16] MEDS ORDERED: predniSONE 20 MG Tab PO ONE (22:23)
--- NOTE | 2021-01-16 22:26 | EDM.PDOC ---
ED HPI GENERAL MEDICAL PROBLEM - General Chief Complaint: Asthma Stated Complaint: ASTHMA, TROUBLE BREATHING Time Seen by Provider: 01/16/21 22:09 Source of Information: Reports: Patient History Limitations: Reports: No Limitations - History of Present Illness INITIAL COMMENTS - FREE TEXT/NARRATIVE: 25-year-old male with history of asthma presents feeling short of breath today with wheezing. He ran out of his inhaler. He denies fever, chills, cough, ageusia, anosmia, body aches, malaise. ROS: A 10-point review of systems, other than pertinent positives and negatives as stated per HPI, is otherwise negative Past medical history: No additional pertinent history Past Surgical history: No additional pertinent history Social history: No additional pertinent history Family history: No additional pertinent history PHYSICAL EXAM General: AOx4, GCS = 15, No distress HEENT: dry mucous membrane Neck: supple, no meningismus, no Kernig or Brudzinski Cardiac: S1S2 RRR Respiratory: Diminished breath sounds bilaterally with mild expiratory wheezing, speaking full sentences. Abdomen: Soft, nontender, no rebound or guarding, nondistended, no pulsatile mass. Back: nontender Musculoskeletal: NVI distally, no deformity Neuro: No focal deficits, CN 2 - 12 WNL. - Related Data Allergies Allergy/AdvReac Type Severity Reaction Status Date / Time Penicillins Allergy Rash Verified 01/16/21 21:58 Sulfa (Sulfonamide Allergy Rash Verified 01/16/21 21:58 Antibiotics) Home Meds: Home Meds Albuterol Sulfate [Proair Hfa] 2 puff INH Q4HR PRN #1 inhaler 12/08/19 [Rx] Albuterol Sulfate [Albuterol Sulfate Hfa] 8.5 gm IH Q4H PRN #1 [email or web address] 01/16/21 [Rx] predniSONE [Prednisone] 50 mg PO DAILY #5 tablet 01/16/21 [Rx] Past Medical History HEENT History: Reports: None Cardiovascular History: Reports: None Respiratory History: Reports: Asthma Gastrointestinal History: Reports: None Genitourinary History: Reports: None Musculoskeletal History: Reports: None Neurological History: Reports: None Psychiatric History: Reports: Anxiety, Suicide Attempt, Suicidal Ideation Endocrine/Metabolic History: Reports: None Hematologic History: Reports: None Immunologic History: Reports: None Oncologic (Cancer) History: Reports: None Dermatologic History: Reports: None - Infectious Disease History Infectious Disease History: Reports: None - Past Surgical History Head Surgeries/Procedures: Reports: None HEENT Surgical History: Reports: Tonsillectomy Social & Family History - Family History Family Medical History: No Pertinent Family History - Tobacco Use Tobacco Use Status *Q: Never Tobacco User Second Hand Smoke Exposure: No - Caffeine Use Caffeine Use: Reports: Tea - Recreational Drug Use Recreational Drug Use: No ED ROS GENERAL - Review of Systems Review Of Systems: See Below (see dictation) ED EXAM, GENERAL - Physical Exam Exam: See Below (see dictation) Course - Vital Signs Last Recorded V/S: Last Vital Signs Temp 97.6 F 01/16/21 21:55 Pulse 103 H 01/16/21 21:55 Resp 18 01/16/21 21:55 BP 143/79 H 01/16/21 21:55 Pulse Ox 92 L 01/16/21 21:55 - Orders/Labs/Meds Orders: Active Orders 24 hr Category Date Time Status RT Aerosol Therapy [RC] ASDIRECTED Care 01/16/21 22:18 Active Meds: Medications Discontinued Medications Generic Name Dose Route Start Last Admin Trade Name Freq PRN Reason Stop Dose Admin Albuterol/Ipratropium 3 ml 01/16/21 22:18 01/16/21 22:31 Albuterol/Ipratropium 3.0-0.5 Mg/3 Ml Neb Soln NEB 01/16/21 22:19 3 ml ONETIME ONE Administration Prednisone 60 mg 01/16/21 22:23 01/16/21 22:29 Prednisone 20 Mg Tab PO 01/16/21 22:24 60 mg ONETIME ONE Administration - Re-Assessments/Exams Free Text/Narrative Re-Assessment/Exam: 01/16/21 22:59 After given DuoNeb treatment and prednisone in the ER, the patient improved and is currently stable for discharge. I performed a repeat exam and did not appreciate new abnormal findings. Patient exhibits normal vital signs and has a normal gait on road test. I advised the patient to return to the ER for r eevaluation if symptoms worsened, including fever, worsening pain, or any other worrisome symptoms. I instructed the patient to follow up with their PCP within 2-3 days. MEDICAL DECISION MAKING: I reviewed the patients past medical records, lab and radiographic findings. I discussed the case with the patient. My differential diagnosis included: Asthma exacerbation. Departure - Departure Time of Disposition: 22:23 Disposition: Home, Self-Care 01 Condition: Good Clinical Impression: Asthma attack - Discharge Information *PRESCRIPTION DRUG MONITORING PROGRAM REVIEWED*: Not Applicable *COPY OF PRESCRIPTION DRUG MONITORING REPORT IN PATIENT [place]: Not Applicable Prescriptions: Albuterol Sulfate [Albuterol Sulfate Hfa] 8.5 gm IH Q4H PRN #1 hfa.aer.ad PRN Reason: Wheezing predniSONE [Prednisone] 50 mg PO DAILY #5 tablet Instructions: Asthma Attack Referrals: Macros Crawley MD [Primary Care Provider] - 3 Days Forms: ED Department Discharge Additional Instructions: The need for follow-up, as well as the timing and circumstances, are variable depending upon the specifics of your emergency department visit. If you don't have a primary care physician on staff, we will provide you with a referral. We always advise you to contact your personal physician following an emergency department visit to inform them of the circumstance of the visit and for follow-up with them and/or the need for any referrals to a consulting specialist. The emergency department will also refer you to a specialist when appropriate. This referral assures that you have the opportunity for follow-up care with a specialist. All of these measure are taken in an effort to provide you with optimal care, which includes your follow-up. Under all circumstances we always encourage you to contact your private physician who remains a resource for coordinating your care. When calling for follow-up care, please make the office aware that this follow-up is from your recent emergency room visit. If for any reason you are refused follow-up, please contact the [facility] Emergency Department at and asked to speak to the emergency department charge nurse. If you do not have a primary care doctor, please follow up with the clinics below within 3-[address] [facility] - Primary Care [address] [place] [id number] [facility] [address] [place] [id number] Sepsis Event Note (ED) - Evaluation Sepsis Screening Result: No Definite Risk - Focused Exam Vital Signs: Vital Signs Temp Pulse Resp BP Pulse Ox 01/16/21 21:55 97.6 F 103 H 18 143/79 H 92 L - My Orders Last 24 Hours: My Active Orders 01/16/21 22:18 RT Aerosol Therapy [RC] ASDIRECTED - Assessment/Plan Last 24 Hours: My Active Orders 01/16/21 22:18 RT Aerosol Therapy [RC] ASDIRECTED
[2021-01-16] MEDS ORDERED: Albuterol 8 GM Inhaler ONE (23:07)
[2021-01-16] MEDS ORDERED: Albuterol 8 GM Inhaler INH ONE (23:08)
== END 2021-01-16 23:22 | disposition home or self-care (01) ==
LOC: MW.ED 21:24
DX: J45.909 Unspecified asthma, uncomplicated (principal); Z88.2 Allergy status to sulfonamides; Z88.0 Allergy status to penicillin
CPT/HCPCS: 99284; A9270; J7620-GY

== ENCOUNTER 2021-03-07 23:07 | Emergency (ER) | payer OTHER ==
[2021-03-07] MEDS ORDERED: predniSONE 10 MG Tab PO ONE (23:28)
[2021-03-07] MEDS ORDERED: Albuterol/Ipratropium 3.0-0.5 MG/3 ML Neb Soln NEB ONE ×3 (23:28→23:29)
[2021-03-08] MEDS ORDERED: Albuterol 8 GM Inhaler INH ONE (00:21)
--- NOTE | 2021-03-08 00:24 | EDM.PDOC ---
ED HPI GENERAL MEDICAL PROBLEM - General Chief Complaint: Asthma Stated Complaint: ASTHMA ATTACK Time Seen by Provider: 03/07/21 23:26 - History of Present Illness INITIAL COMMENTS - FREE TEXT/NARRATIVE: HISTORY AND PHYSICAL: History of present illness: Is a 25-year-old gentleman with history significant for asthma who presents ER today secondary to acute asthma exacerbation. Patient reports that his albuterol nebulizer machine is broken and he ran out of his albuterol MDI today. Patient has any recent fevers, shakes, chills, nausea, vomiting, diarrhea, dysuria, frequency, urgency. Patient denies any Covid exposures. Patient does not wish for an x-ray or Covid testing. Patient reports he has got a nonproductive cough. Review of systems: As per history of present illness and below otherwise all systems reviewed and negative. Past medical history: As per history of present illness and as reviewed below otherwise noncontributory. Surgical history: As per history of present illness and as reviewed below otherwise noncontributory. Social history: No reported history of drug abuse. Family history: As per history of present illness and as reviewed below otherwise noncontributory. Physical exam: This patient was seen and evaluated during the 2019 SARS-CoV-2 novel coronavirus pandemic period. Community viral transmission is ongoing at time of this encounter and the emergency department is operating under pandemic response procedures. Constitutional: Patient is oriented to person, place, and time. Appears well- developed and well-nourished. No distress. HEENT: Moist mucous membranes Head: Normocephalic and atraumatic Eyes: Right eye exhibits no discharge. Left eye exhibits no discharge. No scleral icterus Neck: Normal range of motion. No tracheal deviation present. Cardiovascular: Normal rate and regular rhythm. Pulmonary: Effort normal, no respiratory distress. Positive and expiratory and expiratory wheezing. Able to speak in full sentences. No respiratory distress. Abdominal: No distention Musculoskeletal: Normal range of motion Neurologic: Alert and oriented to person, place and time. Skin: [place], warm and dry. Psychiatric: Normal mood and affect. Behavior is normal. Judgment and thought content normal. Nursing note and vital signs have been reviewed Diagnostics: Chest x-ray/Covid influenza/testing: Patient refused Therapeutics: DuoNeb x3, prednisone Assessment and plan: 25-year-old gentleman who presents ER today secondary to an acute asthma exacerbation most likely secondary to running out of his albuterol MDI and nebulizers at home. Patient reports his nebulizer machine is broken and is requesting that we send him home with an albuterol MDI secondary to financial concerns. Patient be discharged home with a prescription for prednisone and an MDI. Patient is ambulating in ER with no difficulty and no shortness of breath. Reassessment at the time of disposition demonstrates that the patient is in no acute distress. The patient has remained stable throughout the entire ED visit and is without objective evidence for acute process requiring urgent intervention or hospitalization. The patient is stable for discharge, counseling is provided as documented above, discussed symptomatic treatment and specific conditions for return. I have spoken with the patient/caregiver and discussed todays findings, in addition to providing specific details for the plan of care. Questions are answered and there is agreement with the plan. Definitive disposition and diagnosis as appropriate pending reevaluation and review of above. - Related Data Allergies Allergy/AdvReac Type Severity Reaction Status Date / Time Penicillins Allergy Rash Verified 03/07/21 23:21 Sulfa (Sulfonamide Allergy Rash Verified 03/07/21 23:21 Antibiotics) Home Meds: Home Meds Albuterol Sulfate [Proair Hfa] 2 puff INH Q4HR PRN #1 inhaler 12/08/19 [Rx] Albuterol Sulfate [Albuterol Sulfate Hfa] 8.5 gm IH Q4H PRN #1 [email or web address] 01/16/21 [Rx] FLUoxetine [PROzac] 1 dose PO ASDIRECTED 03/07/21 [History] Past Medical History HEENT History: Reports: None Cardiovascular History: Reports: None Respiratory History: Reports: Asthma Gastrointestinal History: Reports: None Genitourinary History: Reports: None Musculoskeletal History: Reports: None Neurological History: Reports: None Psychiatric History: Reports: Anxiety, Suicide Attempt, Suicidal Ideation Endocrine/Metabolic History: Reports: None Hematologic History: Reports: None Immunologic History: Reports: None Oncologic (Cancer) History: Reports: None Dermatologic History: Reports: None - Infectious Disease History Infectious Disease History: Reports: None - Past Surgical History Head Surgeries/Procedures: Reports: None HEENT Surgical History: Reports: Tonsillectomy Social & Family History - Family History Family Medical History: No Pertinent Family History - Tobacco Use Tobacco Use Status *Q: Current Some Day Tobacco User Years of Tobacco use: 5 Packs/Tins Daily: 0.1 - Caffeine Use Caffeine Use: Reports: None - Recreational Drug Use Recreational Drug Use: Yes Recreational Drug Type: Reports: Marijuana/Hashish Recreational Drug Use Frequency: Rarely ED ROS GENERAL - Review of Systems Review Of Systems: See Below ED EXAM, GENERAL - Physical Exam Exam: See Below Course - Vital Signs Last Recorded V/S: Last Vital Signs Temp 98.1 F 03/07/21 23:25 Pulse 99 03/07/21 23:25 Resp 20 03/07/21 23:25 BP 133/67 03/07/21 23:25 Pulse Ox 94 L 03/07/21 23:25 - Orders/Labs/Meds Orders: Active Orders 24 hr Category Date Time Status RT Aerosol Therapy [RC] ASDIRECTED Care 03/07/21 23:28 Active RT Aerosol Therapy [RC] ASDIRECTED Care 03/07/21 23:28 Active RT Aerosol Therapy [RC] ASDIRECTED Care 03/07/21 23:29 Active RT Post Treatment Assessment [RC] Click to Edit Care 03/08/21 00:21 Ordered RT Pre-Treatment Assessment [RC] Click to Edit Care 03/08/21 00:21 Ordered Chest 2V [CR] Stat Exams 03/08/21 00:11 Ordered Albuterol [Ventolin HFA] Med 03/08/21 00:21 Once 1 gm INH ONETIME ONE Meds: Medications Discontinued Medications Generic Name Dose Route Start Last Admin Trade Name Ezequielq PRN Reason Stop Dose Admin Albuterol/Ipratropium 3 ml 03/07/21 23:28 03/07/21 23:36 Albuterol/Ipratropium 3.0-0.5 Mg/3 Ml Neb Soln NEB 03/07/21 23:29 3 ml ONETIME ONE Administration Albuterol/Ipratropium 3 ml 03/07/21 23:28 03/07/21 23:36 Albuterol/Ipratropium 3.0-0.5 Mg/3 Ml Neb Soln NEB 03/07/21 23:29 3 ml ONETIME ONE Administration Albuterol/Ipratropium 3 ml 03/07/21 23:29 03/07/21 23:36 Albuterol/Ipratropium 3.0-0.5 Mg/3 Ml Neb Soln NEB 03/07/21 23:30 3 ml ONETIME ONE Administration Prednisone 40 mg 03/07/21 23:28 03/07/21 23:35 Prednisone 10 Mg Tab PO 03/07/21 23:29 40 mg ONETIME ONE Administration Departure - Departure Time of Disposition: 00:23 Disposition: Home, Self-Care 01 Condition: Good Clinical Impression: Asthma exacerbation - Discharge Information Instructions: Asthma, Adult, Asthma Attack Referrals: PCP,None [Primary Care Provider] - Additional Instructions: Your seen and evaluated in ER today secondary to an acute asthma exacerbation. As a courtesy, you will be given an albuterol MDI to go home with. You will also be given a prescription for prednisone to take. Please make an appointment see your doctor next week for reevaluation. Return to the ER if your symptoms are returning. The following information is given to patients seen in the emergency department who are being discharged to home. This information is to outline your options for follow-up care. We provide all patients seen in our emergency department with a follow-up referral. The need for follow-up, as well as the timing and circumstances, are variable depending upon the specifics of your emergency department visit. If you don't have a primary care physician on staff, we will provide you with a referral. We always advise you to contact your personal physician following an emergency department visit to inform them of the circumstance of the visit and for follow-up with them and/or the need for any referrals to a consulting specialist. The emergency department will also refer you to a specialist when appropriate. This referral assures that you have the opportunity for follow-up care with a specialist. All of these measure are taken in an effort to provide you with optimal care, which includes your follow-up. Under all circumstances we always encourage you to contact your private physician who remains a resource for coordinating your care. When calling for follow-up care, please make the office aware that this follow-up is from your recent emergency room visit. If for any reason you are refused follow-up, please contact the [facility] Emergency Department at and asked to speak to the emergency department charge nurse. [facility] [address] [place] [id number] [facility] [address] [place] [id number] Sepsis Event Note (ED) - Evaluation Sepsis Screening Result: No Definite Risk - Focused Exam Vital Signs: Vital Signs Temp Pulse Resp BP Pulse Ox 03/07/21 23:25 98.1 F 99 20 133/67 94 L - My Orders Last 24 Hours: My Active Orders 03/07/21 23:28 RT Aerosol Therapy [RC] ASDIRECTED RT Aerosol Therapy [RC] ASDIRECTED 03/07/21 23:29 RT Aerosol Therapy [RC] ASDIRECTED 03/08/21 00:11 Chest 2V [CR] Stat 03/08/21 00:21 RT Post Treatment Assessment [RC] Click to Edit RT Pre-Treatment Assessment [RC] Click to Edit Albuterol [Ventolin HFA] 1 gm INH ONETIME ONE - Assessment/Plan Last 24 Hours: My Active Orders 03/07/21 23:28 RT Aerosol Therapy [RC] ASDIRECTED RT Aerosol Therapy [RC] ASDIRECTED 03/07/21 23:29 RT Aerosol Therapy [RC] ASDIRECTED 03/08/21 00:11 Chest 2V [CR] Stat 03/08/21 00:21 RT Post Treatment Assessment [RC] Click to Edit RT Pre-Treatment Assessment [RC] Click to Edit Albuterol [Ventolin HFA] 1 gm INH ONETIME ONE
== END 2021-03-08 00:39 | disposition home or self-care (01) ==
LOC: MW.ED 23:07
DX: J45.901 Unspecified asthma with (acute) exacerbation (principal); Z88.0 Allergy status to penicillin; Z88.2 Allergy status to sulfonamides; Z72.0 Tobacco use
CPT/HCPCS: 99284; A9270; J7620-GY

== ENCOUNTER 2021-03-27 14:14 | Emergency (ER) | payer OTHER ==
[2021-03-27] MEDS ORDERED: Albuterol/Ipratropium 3.0-0.5 MG/3 ML Neb Soln NEB ONE ×2 (16:18→16:19)
[2021-03-27] MEDS ORDERED: predniSONE 20 MG Tab PO ONE (16:19)
[2021-03-27] MEDS ORDERED: Albuterol 8 GM Inhaler INH ONE (16:56)
== END 2021-03-27 17:07 | disposition home or self-care (01) ==
LOC: MW.ED 14:14
DX: J45.901 Unspecified asthma with (acute) exacerbation (principal); Z88.0 Allergy status to penicillin; Z88.2 Allergy status to sulfonamides
CPT/HCPCS: 99284; A9270; J7620-GY

== ENCOUNTER 2022-03-04 11:31 | Emergency (ER) | payer OTHER ==
[2022-03-04] MEDS ORDERED: Sodium Chloride 0.9% 10 ML Syringe FLUSH PRN (11:53)
[2022-03-04] MEDS ORDERED: Sodium Chloride 0.9% 2.5 ML Syringe FLUSH PRN (11:53)
[2022-03-04] MEDS ORDERED: Sodium Chloride 0.9% 1,000 ML IV STA (12:06)
[2022-03-04 12:51] LABS: CARBON DIOXIDE,CO2 27.1 mmol/L (21.0-32.0); POTASSIUM,K 4.2 mmol/L (3.5-5.1)
== END 2022-03-04 13:40 | disposition home or self-care (01) ==
LOC: MW.ED 11:31
DX: K62.5 Hemorrhage of anus and rectum (principal); R10.13 Epigastric pain; J45.909 Unspecified asthma, uncomplicated; Z91.018 Allergy to other foods; Z91.048 Other nonmedicinal substance allergy status; Z88.0 Allergy status to penicillin; Z88.2 Allergy status to sulfonamides; Z72.0 Tobacco use; Z79.899 Other long term (current) drug therapy
CPT/HCPCS: 36415; 80053; 81001; 83735; 85025; 96360; 99283; J3490; J7030